=== PATIENT | female | born 1955 | race Caucasian/White ===

== ENCOUNTER 2025-03-23 06:55 | Emergency (ER) | payer MEDICARE, BC ==
[~2025-03-23] VITALS: Ht 177.8 cm; Wt 48.5 kg
[2025-03-23] MEDS ORDERED: ONDANSETRON HCL/PF 4 MG/2 ML VIAL ONE (07:23)
[2025-03-23] MEDS ORDERED: OLANZAPINE ZYDIS 5 MG TAB.RAPDIS ONE ×2 (07:24→07:34)
[2025-03-23 07:37] LABS: RED BLOOD CELL COUNT(AUTO) 4.51 MIL/uL (4.0-5.2)
[2025-03-23 07:40] LABS: BASOPHILS % (AUTO) 0.8 % (0.0-2.0); EOSINOPHILS % (AUTO) 0.2 % (0.0-6.0); HEMATOCRIT 41 % (33-45); LYMPHOCYTES # (AUTO) 0.6 K/uL (0.8-4.8); LYMPHOCYTES % (AUTO) 12.8 % (20.0-44.0); MEAN CORPUSCULAR HEMOGLOBIN 31 PG (26.0-33.0); MEAN CORPUSCULAR HGB CONC 35 g/dl (31.0-36.0); MEAN CORPUSCULAR VOLUME 90 fL (82-100); MONOCYTES # (AUTO) 0.2 K/uL (0.1-1.30); MONOCYTES % (AUTO) 3.6 % (2.0-12.0); NEUTROPHILS # (AUTO) 4.2 K/uL (1.8-8.9); NEUTROPHILS % (AUTO) 82.6 % (43.0-81.0); PLATELET COUNT (AUTO) 188 K/uL (150-450); WHITE BLOOD COUNT (AUTO) 5.1 K/uL (4.3-11.0)
[2025-03-23 07:42] LABS: CALCIUM, SERUM 9.6 mg/dL (8.5-10.1); CREATININE 0.9 mg/dL (0.6-1.3); POTASSIUM 4.4 mmol/L (3.5-5.1)
[2025-03-23] MEDS: ONDANSETRON HCL/PF 4 MG/2 ML VIAL IVP ONE (07:43)
[2025-03-23] MEDS: IV NS 0.9% 1,000 ML BAG IV ONE (07:43)
[2025-03-23] MEDS: OLANZAPINE ZYDIS 5 MG TAB.RAPDIS PO ONE (07:44)
[2025-03-23 07:48] LABS: ALBUMIN 4.4 g/dL (3.4-5.0); BILIRUBIN,DIRECT 0.2 mg/dL (0.0-0.2); BILIRUBIN,TOTAL 0.5 mg/dL (0.2-1.0); TOTAL PROTEIN, SERUM 7.5 g/dL (6.4-8.2)
[2025-03-23] MEDS ORDERED: MECLIZINE HCL 25 MG TABLET ONE (08:22)
[2025-03-23] MEDS: MECLIZINE HCL 12.5 MG TABLET PO ONE (08:28)
[2025-03-23] MEDS ORDERED: ONDA4TAB5 PO (08:46)
[2025-03-23] MEDS ORDERED: MECL-159 PO (08:46)
[2025-03-23 09:13] VITALS: BP 120/71; TEMP 97.9; O2SAT 100
== END 2025-03-23 09:14 | disposition home or self-care (01) ==
LOC: ER 07:05
DX: F11.23 Opioid dependence with withdrawal (principal); R44.3 Hallucinations, unspecified; R00.2 Palpitations
CPT/HCPCS: 99284; 96374; 96361; 93005; 85025; 80048; 83690; 80076; 80320; 80307; J2405; J7030; 36415; G0480; J8597